=== PATIENT | female | born 1965 | race Two or more races ===

== ENCOUNTER 2025-10-02 09:00 | Emergency (ER) | payer BC, SELFPAY ==
--- NOTE | ~2025-10-02 | XR_ITS ---
Examination: XR chest 2V Clinical History: cough x1 week hx pna +flu Comparison: None Technique: PA and Lateral Findings: Cardiomediastinal silhouette normal size and configuration. Lungs clear. No acute bony abnormality. Breast implants. IMPRESSION: 1. No acute cardiopulmonary findings. Reviewed, dictated and finalized at location R. [employer]
[2025-10-02 09:27] VITALS: BP 124/87; PULSE 81; RESP 16; TEMP 36.8; O2SAT 100
--- NOTE | 2025-10-02 09:43 | ED.URI ---
HPI - URI/Sore Throat General Chief Complaint: Upper Respiratory Infection Stated Complaint: URI Symptoms Time Seen by Provider: 10/02/25 09:44 Source: patient Mode of arrival: ambulatory Limitations: no limitations History of Present Illness HPI Narrative: 60-year-old female presented for complaint of cough x6 days. Endorses headache, body aches, sinus pressure/congestion, fever/chills. taking Augmentin she had at home and Tylenol for symptoms. Denies sob, wheezing, n/v/d. Endorses history of pneumonia about 5 years ago required hospitalization. Related Data Home Medications ?Medication ?Instructions ?Recorded ?Confirmed ?Last Taken ?Type albuterol sulfate 90 mcg/actuation inhalation 10/02/25 Unknown History aerosol inhaler (Ventolin HFA) candesartan 16 mg tablet mg 10/02/25 Unknown History fenofibrate 40 mg tablet mg PO 10/02/25 Unknown History levothyroxine 50 mcg tablet mcg 10/02/25 Unknown History meclizine 25 mg tablet mg 10/02/25 Unknown History pantoprazole 40 mg tablet,delayed mg PO 10/02/25 Unknown History release sertraline 50 mg tablet mg 10/02/25 Unknown History Allergies Allergy/AdvReac Type Severity Reaction Status Date / Time No Known Allergies Allergy Verified 10/02/25 09:38 Review of Systems Review of Systems: for HPI All systems reviewed & are unremarkable except as noted in HPI and below PMFSH Comments At time of signature, I have reviewed and agree with nursing past medical, surgical, social and family history unless otherwise noted. Please see nursing chart for further information. There is no relevant family history pertinent to the presenting complaint Exam Narrative: GENERAL: mildly ill-appearing, in no acute distress. EYES: EOMI. No redness or drainage. Conjunctivae normal. ENT: Mucous membranes pink and moist. congestion and rhinorrhea. TMs normal bilaterally. Throat normal. Uvula midline. NECK: Normal AROM. Supple. CHEST: No respiratory distress. lungs clear to all ray. occasional cough HEART: Regular rate and rhythm. No murmur appreciated. ABDOMEN: Soft, nontender, nondistended, normal active bowel sounds. SKIN: Warm, dry, no rash. Capillary refill normal. Normal skin turgor. NEURO: Alert and oriented x3. Gait steady. PSYCH: Normal affect. Course Course Level of Care: Express Care Visit Vital Signs Vital signs: Vital Signs Temperature 98.3 F 10/02/25 09:27 Pulse Rate 81 10/02/25 09:27 Respiratory Rate 16 10/02/25 09:27 Blood Pressure 124/87 10/02/25 09:27 Pulse Oximetry 100 10/02/25 09:27 Temperature 98.3 F 10/02/25 09:27 Pulse Rate 81 10/02/25 09:27 Respiratory Rate 16 10/02/25 09:27 Blood Pressure 124/87 10/02/25 09:27 Pulse Oximetry 100 10/02/25 09:27 MDM MDM Narrative Medical decision making narrative: POS flu. result of chest x-ray reviewed with patient. Reviewed RXs. Discussed physical exam findings. Advised supportive measures and signs/symptoms to go to the ER. Pt is appropriate for outpt treatment and f/u. Differential Diagnosis Differential Diagnosis: Influenza, covid, sinusitis, OM, strep pharyngitis, URI , bronchitis, pneumonia Lab Data Labs: Lab Results 10/02/25 Range/Units 09:52 POC Influenza A Ag Negative (Negative) POC Influenza B Ag Positive (Negative) POC SARS CoV-2 Ag Negative (Negative) Imaging Data Radiologist's impression: ITS Impressions Chest X-Ray 10/02/25 10:56 IMPRESSION: 1. No acute cardiopulmonary findings. Discharge Plan Discharge Clinical Impression: Influenza Patient Disposition: Home Condition: Stable Instructions: Influenza (ED) Additional Instructions: Influenza positive You should avoid crowds until you are fever free for 24 hours without the use of fever reducing medications, or the symptoms are improved Rest. Drink plenty of fluids. Tylenol 1000mg every 8 hours as needed for pain/fever Recommend Flonase spray and Zyrtec (or Claritin/Lou) for sinus pressure/congestion over the counter Cough syrup may cause drowsiness; avoid driving or take it at night time. Follow up with your primary care provider as needed in 3 days Go to the ER for worsening symptoms or concerns Patient Language: Palauan Prescriptions: New methylprednisolone [Medrol (Yoni)] 4 mg tablets,dose pack See Rx Instructions .ROUTE .COMPLEX Qty: 21 0RF Rx Instructions: orally per package directions albuterol sulfate 90 mcg/actuation HFA aerosol inhaler 2 inh inhalation QID PRN (Reason: shortness of breath or wheezing) Qty: 8.5 0RF No Action meclizine 25 mg tablet levothyroxine 50 mcg tablet pantoprazole 40 mg tablet,delayed release (DR/EC) PO candesartan 16 mg tablet albuterol sulfate [Ventolin HFA] 90 mcg/actuation HFA aerosol inhaler INHALATION sertraline 50 mg tablet fenofibrate 40 mg tablet PO Follow-up/Referrals: PHYSICIAN,METERS SUPERINTENDENT [Primary Care Provider, Internal Medicine]
[2025-10-02 09:55] LABS: EDCOVIDSCREEN Negative (Negative); EDINFLUASCREEN Negative (Negative); EDINFLUBSCREEN Positive (Negative)
== END 2025-10-02 11:08 | disposition home or self-care (01) ==
PROVIDERS: Emergency Provider Nurse Practitioner Family
DX: R09.89 Other specified symptoms and signs involving the circulatory and respiratory systems (principal); R05.9 Cough, unspecified; R51.9 Headache, unspecified; Z20.822 Contact with and (suspected) exposure to COVID-19
CPT/HCPCS: 71046; 87426; 87804; 99203; G0463